=== PATIENT | male | born 1945 | race Hispanic/Latino ===

== ENCOUNTER 2017-02-02 14:17 | Emergency (ER) | payer MEDICARE | END 2017-02-02 16:37 | disposition home or self-care (01) | LOC: EDH 14:17 | DX: M54.12 Radiculopathy, cervical region (principal); I10 Essential (primary) hypertension; E78.5 Hyperlipidemia, unspecified; I25.10 Atherosclerotic heart disease of native coronary artery without angina pectoris; Z95.1 Presence of aortocoronary bypass graft; M79.601 Pain in right arm | CPT/HCPCS: 72040; 93971 ==